=== PATIENT | female | born 1975 | race African-American/Black ===

== ENCOUNTER 2020-08-20 10:28 | Outpatient (CLI) | payer BC ==
--- NOTE | 2020-08-20 10:51 | RAD ---
Exam: 3 views cervical spine HISTORY: Pain that radiates into the shoulders FINDINGS: Straightening of cervical lordosis is noted. There is no prevertebral soft tissue swelling. Predental space is normal. Cervical spine vertebral body heights are maintained. No fracture. No malalignment upon extension or flexion. Moderate loss of disc space height and osteophyte formation a t C5-C6. Mild loss of disc space height and osteophyte formation at C6-C7 IMPRESSION: 1. No malalignment. Straightening of cervical lordosis is presumed to be due to patient position 2. Degenerative change at C5-C6 and C6-C7
== END 2020-08-20 10:29 | disposition home or self-care (01) ==
LOC: TBSIIMAG 10:28
PROVIDERS: ATTEND Neurological Surgery
DX: M47.22 Other spondylosis with radiculopathy, cervical region (principal)
CPT/HCPCS: 72040

== ENCOUNTER 2020-08-22 09:38 | Outpatient (CLI) | payer BC | END 2020-08-22 09:39 | disposition home or self-care (01) | LOC: TBSIIMAG 09:38 | PROVIDERS: ATTEND Neurological Surgery | DX: M54.16 Radiculopathy, lumbar region (principal) | CPT/HCPCS: 72100 ==

== ENCOUNTER 2020-09-03 09:06 | Outpatient (CLI) | payer BC | END 2020-09-03 09:07 | disposition home or self-care (01) | LOC: TBSIIMAG 09:06 | PROVIDERS: ATTEND Neurological Surgery | DX: M51.16 Intervertebral disc disorders with radiculopathy, lumbar region (principal); M48.061 Spinal stenosis, lumbar region without neurogenic claudication | CPT/HCPCS: 72148 ==